=== PATIENT | male | born 1935 | race Caucasian/White ===

== ENCOUNTER 2018-07-02 12:21 | Outpatient (RCR) ==
[2018-07-07 09:37] VITALS: TEMP 207.5; BMI 31.8
[2018-07-30 11:03] VITALS: BP 132/58
== END 2018-08-01 23:59 ==
LOC: CAR.REHAB 12:21
DX: I49.1 Atrial premature depolarization (principal); I49.3 Ventricular premature depolarization
CPT/HCPCS: 93798

== ENCOUNTER 2018-08-02 07:36 | Outpatient (RCR) ==
[2018-08-27 10:52] VITALS: BP 144/54
== END 2018-08-31 23:59 ==
LOC: CAR.REHAB 07:36
PROVIDERS: ATTEND Internal Medicine
DX: I49.1 Atrial premature depolarization (principal); I49.3 Ventricular premature depolarization
CPT/HCPCS: 93798

== ENCOUNTER 2018-09-01 07:00 | Outpatient (RCR) ==
[2018-10-01 10:54] VITALS: BP 128/54
== END 2018-10-01 23:59 ==
LOC: CAR.REHAB 07:00
PROVIDERS: ATTEND Internal Medicine
DX: I49.1 Atrial premature depolarization (principal); I49.3 Ventricular premature depolarization
CPT/HCPCS: 93798

== ENCOUNTER 2018-10-02 09:08 | Outpatient (RCR) | payer OTHER ==
[2018-10-11 10:53] VITALS: BP 126/62
== END 2018-10-11 12:54 | disposition home or self-care (01) ==
LOC: CAR.REHAB 09:08
PROVIDERS: ATTEND Internal Medicine
DX: I49.1 Atrial premature depolarization (principal); I49.3 Ventricular premature depolarization
CPT/HCPCS: 93798